=== PATIENT | female | born 1980 | race Caucasian/White ===

== ENCOUNTER 2024-09-18 08:47 | Emergency (ER) | payer OTHER ==
[~2024-09-18] VITALS: Ht 162.6 cm; Wt 122.5 kg
[2024-09-18] MEDS ORDERED: ONDANSETRON HCL/PF 4 MG/2 ML VIAL ONE (09:31)
[2024-09-18] MEDS ORDERED: MORPHINE SULFATE INJ 4 MG/ML DISP.SYRIN ONE (09:32)
[2024-09-18 09:40] LABS: APPEARANCE,URINE CLEAR (CLEAR); BILIRUBIN,URINE NEGATIVE (NEGATIVE); BLOOD, URINE NEGATIVE Ery/uL (NEGATIVE); COLOR,URINE YELLOW (YELLOW); KETONES,URINE NEGATIVE (NEGATIVE); LEUKOCYTE ESTERASE ,URINE NEGATIVE (NEGATIVE); NITRITE, URINE NEGATIVE (NEGATIVE); PROTEIN,URINE NEGATIVE (NEGATIVE); UGLUCOSE NEGATIVE (NEGATIVE); UROBILINOGEN,URINE 0.2 EU/dL (0.2)
[2024-09-18] MEDS: IV NS 0.9% 1,000 ML BAG IV ONE (09:40)
[2024-09-18] MEDS: MORPHINE SULFATE INJ 2 MG/ML DISP.SYRIN IV ONE (09:41)
[2024-09-18] MEDS: ONDANSETRON HCL/PF 4 MG/2 ML VIAL IVP ONE (09:41)
[2024-09-18 09:42] LABS: BASOPHILS % (AUTO) 0.3 % (0.0-2.0); EOSINOPHILS # (AUTO) 0.2 K/uL (0.0-0.7); HEMATOCRIT 39 % (33-45); HEMOGLOBIN 13.3 g/dL (11.5-14.8); LYMPHOCYTES # (AUTO) 1.6 K/uL (0.8-4.8); LYMPHOCYTES % (AUTO) 15.6 % (20.0-44.0); MEAN CORPUSCULAR HEMOGLOBIN 29 PG (26.0-33.0); MEAN CORPUSCULAR HGB CONC 34 g/dl (31.0-36.0); MEAN CORPUSCULAR VOLUME 86 fL (82-100); MONOCYTES # (AUTO) 0.6 K/uL (0.1-1.30); MONOCYTES % (AUTO) 6.3 % (2.0-12.0); NEUTROPHILS # (AUTO) 7.7 K/uL (1.8-8.9); NEUTROPHILS % (AUTO) 75.8 % (43.0-81.0); PLATELET COUNT (AUTO) 223 K/uL (150-450); RED BLOOD CELL COUNT(AUTO) 4.53 MIL/uL (4.0-5.2); RED CELL DISTRIBUTION WIDTH 12.9 % (11.5-15.0); WHITE BLOOD COUNT (AUTO) 10.1 K/uL (4.3-11.0)
[2024-09-18 09:54] LABS: ALBUMIN 3.2 g/dL (3.4-5.0); BILIRUBIN,DIRECT 0.1 mg/dL (0.0-0.2); BILIRUBIN,TOTAL 0.4 mg/dL (0.2-1.0); CALCIUM, SERUM 8.4 mg/dL (8.5-10.1); CREATININE 0.9 mg/dL (0.6-1.3); POTASSIUM 3.7 mmol/L (3.5-5.1); TOTAL PROTEIN, SERUM 6.5 g/dL (6.4-8.2)
[2024-09-18] MEDS ORDERED: CIPR-262 PO (10:57)
[2024-09-18] MEDS ORDERED: METR500T PO (10:57)
[2024-09-18] MEDS ORDERED: CIPROFLOXACIN HCL 250 MG TABLET ONE (11:12)
[2024-09-18] MEDS ORDERED: METRONIDAZOLE 500 MG TABLET ONE (11:12)
[2024-09-18] MEDS: CIPROFLOXACIN HCL 250 MG TABLET PO ONE (11:29)
[2024-09-18] MEDS: METRONIDAZOLE 500 MG TABLET PO ONE (11:29)
[2024-09-18 11:31] VITALS: BP 135/82; TEMP 98.4; O2SAT 99
== END 2024-09-18 11:31 | disposition home or self-care (01) ==
LOC: ER 08:51
DX: K57.32 Diverticulitis of large intestine without perforation or abscess without bleeding (principal); F32.A Depression, unspecified; R10.2 Pelvic and perineal pain; Z88.0 Allergy status to penicillin; Z88.2 Allergy status to sulfonamides; Z90.710 Acquired absence of both cervix and uterus
CPT/HCPCS: 99285; 74176; 96374; 96361; 96375; 85025; 80048; 83690; 80076; 81003; 36415; 84702; J2270; J2405; J7030